=== PATIENT | female | born 1950 | race Caucasian/White ===

== ENCOUNTER → 2020-12-18 | Outpatient (CLI) | payer MEDICARE | LOC: KOH-I 14:00 | DX: Z87.891 Personal history of nicotine dependence (principal); N63.20 Unspecified lump in the left breast, unspecified quadrant | CPT/HCPCS: 71271 ==

== ENCOUNTER → 2022-01-13 | Outpatient (CLI) | payer MEDICARE ==
[~2022-01-13] VITALS: Ht 170.2 cm; Wt 61.7 kg
== END ==
LOC: OPSV 14:00
DX: M81.0 Age-related osteoporosis without current pathological fracture (principal)
CPT/HCPCS: 96372